=== PATIENT | female | born 1955 | race Caucasian/White ===

== ENCOUNTER 2016-04-01 05:30 | Day surgery (SDC) | payer OTHER ==
[2016-04-01] VITALS (12 sets, daily range): BP systolic 125–157; BP diastolic 54–92; PULSE 97–107; RESP 11–20; O2SAT 93–98
[~2016-04-01] VITALS: Ht 167.6 cm; Wt 105.2 kg
[~2016-04-01 05:30] MED LIST: AMLO5TAB2 PO; CALC-3 PO; LACT1CAP65 PO; MULT-1073 PO; [UNRECOGNIZED DRUG - CODE] MM
[2016-04-01] MEDS ORDERED: Dexamethasone 4 mg/mL Inj ONE (05:31)
[2016-04-01] MEDS ORDERED: Propofol 10,000 mCg/mL 20 mL Inj ONE (05:31)
[2016-04-01] MEDS ORDERED: Rocuronium 10 mg/mL 5 mL Inj ONE (05:31)
[2016-04-01] MEDS ORDERED: Ondansetron 2 mg/mL 2 mL Inj ONE (05:31)
[2016-04-01] MEDS ORDERED: fentaNYL-PF 50 mCg/mL 2 mL Inj ONE (05:31)
[2016-04-01] MEDS ORDERED: MetoCLOpramide 5 mg/mL 2 mL Inj ONE (05:31)
[2016-04-01] MEDS: Lactated Ringer's 1,000 ML IV SCH ×3 (06:14→15:19)
[2016-04-01] MEDS ORDERED: CeFAZolin Inj 2 gm / 50mL D5W IV ONE (06:15)
[2016-04-01] MEDS ORDERED: Bupivacaine-MPF 0.25% 30 mL Inj INFILTRATE ONE (07:41)
[2016-04-01] MEDS: CeFAZolin 2 Gm/50 mL D5W IV Premix IV ONE ×2 (07:43→08:22)
--- NOTE | 2016-04-01 08:42 | PCM.HPANE ---
Patient Data Date of Service: Apr 01, 2016 (0710) Surgeon Admitting Provider: Attending Provider:Alice Vinson MD Primary Care Physician:Anya Londono MD Other Provider:Braydon Mcdonald Anesthesia Reason for Visit Right Lung Adenocarcinoma Ht/WT & BMI Height (Feet): 5 Height (Inches): 6 Weight (Kilograms): 100.2 Body Mass Index 35.00 Allergies Coded Allergies: lisinopril (Verified Adverse Reaction, Intermediate, cough, 04/01/16) losartan (Verified Adverse Reaction, Unknown, 04/01/16) Past Anesthesia History Anesthesia History: Denies:: Abnormal Airway, Anesthesia Reactions, Difficult Intubation, Fam Anesthesia Reaction Diabetes History Hx Diabetes?: No MRSA MRSA: No Medications Hypertension Medication: Yes Home Meds Incl Beta Moise: No Reported Medications Phenol (Chloraseptic)20 Ml Spray20 Ml MM prn 03/23/16 Lactobacillus Acidophilus (Probiotic)1 Each Capsule1 Each PO DAILY 03/23/16 Calcium Carbonate/Vitamin D3 (Calcium 500+D Tablet Chew)1 Each Tab.chew1 Each PO DAILY 03/23/16 Multivits-Min/FA/Lycopene/Lut (Centrum Silver Tablet)1 Each Tablet1 Each PO DAILY 03/23/16 Amlodipine 5 Mg [id number] Mg PO BID Ref 0 03/08/16 History History of ENT Problems?: Yes HEENT History: Denies:: Abnormal Airway Cataracts (forming not yet surgically treated) Difficult Intubation Dysphagia Glaucoma Hearing Problem Sinus Problem TMJ Hx of Heart Problems?: Yes Cardiovascular History: Positive for:: Hypertension Denies:: AICD Abdominal Aortic Aneurism Coronary Artery Disease Edema Heart Murmur Irregular Heartbeat Pacemaker Peripheral Vascular Rheumatic Fever Thrombophlebitis Valvular Heart Disease Hx of Respiratory Problem?: Yes Respiratory History: Positive for:: Dyspnea Pneumonia (remote hx of) Denies:: Asthma COPD Chest Surgery Emphysema Hemoptysis Oxygen Administration Pulmonary Embolism Tuberculosis Use of C-PAP Machine Use of Inhalers / NEBS Other Resp Pertinent History: lung adenocarcinoma current admission problem Hx Neurologic Problems?: No Neurological History: Denies:: Alzheimer's Disease CVA Dementia Dizziness Headaches Multiple Sclerosis Parkinson's Disease Seizures TIA Hx of GI Problems?: Yes Gastrointestinal History: Positive for:: Gastroesphageal Reflux (on rare occasions, not on rx ) Denies:: Cirrhosis Diverticulitis Gall Bladder Disease Gastrointestinal Bleeding Heartburn Hepatitis Hiatal Hernia Liver Disease Rectal Bleeding Hx of Problems?: Yes Genitourinary History: Denies:: Kidney Stones Urinary Tract Infection Female Hx: Denies:: Currently (hysterectomy) Endometriosis Pelvic Inflammatory Problems with Breasts? Skin History: Denies:: History Skin Disorders? Pressure Ulcers Hx Musculoskeletal Problems?: No Musculoskeletal History: Denies:: Back Injury Fibromyalgia Joint Replacement Musculoskeletal Trauma (one knee gives her issues "when it rains") Myasthenia Gravis Osteoarthritis Hx of Psycho/Social Problems?: No Psycho Social History: Denies:: Anxiety Bipolar Disorder Hx Depression Suicide Attempt Hx Surgeries?: Yes (tonsil, hanane) Hx Any Other Health Problems?: Yes Other History: Positive for:: Cancer (lung cancer current admission problem) Hospitalization Denies:: Endocrine Disease Thyroid Disease History Blood Transfusions: Positive for:: Accept Blood Products? Denies:: Blood Transfuse Reaction Blood Transfusions Hx Diabetes: No Hx Alcohol Use: Yes (rare to none)Alcoholic Drinks Per Day: every few months Hx Substance Use: No Smoking Status: Never Smoker Have You Smoked inLast 12 mo: No Stop/Bang S-Snoring: Do You Snore Loudly: No T-Tired: feel tired, fatigued: Yes O-Obsered: Observed not breath: No P-Blood Pressure: treated: Yes B- Body Mass Index > 35 kg/m2: Yes A- Age over 50: Yes N- Neck Large Circumference: No G- Gender Male: No QIAN Total Score: 4 Risk Assessment Category Category 1A: Patient has history of documented sleep apnea, and HAS NOT received any narcotic, sedative or anesthesia administration during this stay. Category 1B: Patient has history of documented sleep apnea, and HAS received any narcotic , sedative or anesthesia administration during this stay Category 2: Patient has SUSPECTED Obstructive Sleep Apnea, and HAS received any narcotic , sedative or anesthesia administration during this stay. Category 3: Patient has SUSPECTED Obstructive Sleep Apnea and HAS NOT received narcotic, sedative or anesthesia administration during this stay. Category 4: Outpatient in Procedural Areas with known sleep apnea or who screen positive for High Risk via the STOP/BANG questionnaire. Exam Exam Vital Signs Vital Signs Date Time Temp Pulse Resp B/P Pulse Ox O2 Delivery O2 Flow Rate FiO2 04/01/16 05:56 36.9 105 16 157/88 96 Room Air General Appearance: Alert, Oriented X3, Cooperative, No Acute Distress HEENT/AIRWAY: MP 2 Lungs: Clear to Auscultation Heart: Exam Unremarkable Meds/Labs/Diagnostics Admission Meds Current Medications Lactated Ringer's 1,000 ml @ 120 mls/hr Q8H20M IV Last administered on 07:00; Start 04/01/16 at 05:00; Stop 04/01/16 at 13:19 Cefazolin Sodium/ Dextrose/Premix (Ancef Inj/IV Premix) 50 ml @ 100 mls/hr PREOP ONCE IV Last administered on 04/01/16 08:22; Start 04/01/16 at 06:00; Stop 04/01/16 at 06:29; Status DC Bupivacaine HCl (Sensorcaine-MPF 0.25% Inj) 30 ml STK-MED ONCE INFILTRATE Last administered on 04/01/16 07:41; Start 04/01/16 at 07:41; Stop 04/01/16 at 07:51 ; Status DC Plan Impression Patient chart reviewed, patient interviewed and anesthestic plan with risks, benefits, and alternatives discussed, and informed consent obtained. NPO Status: [id number] 04/01/16 ASA Physical Status: ASA2 Mod Systemic Disease Anesthetic Support Modalities: Arterial Line Anesthetic Plan: GA Bene/Risks/Altern/Consents: Yes HP Complete Prior to Induction: Yes Yakov Vilchis MD Apr 01, 2016 08:42
[2016-04-01] MEDS ORDERED: Lactated Ringer's 500 ML IV PRN (08:44)
[2016-04-01] MEDS ORDERED: Lactated Ringer's 1,000 ML IV SCH (08:44)
[2016-04-01] MEDS ORDERED: MetoCLOpramide 5 mg/mL 2 mL Inj IVPUSH PRN ×2 (08:45→12:55)
[2016-04-01] MEDS ORDERED: Dexamethasone 4 mg/mL Inj IVPUSH PRN (08:45)
[2016-04-01] MEDS ORDERED: Phenylephrine 10,000 mCg/mL Inj IVPUSH PRN (08:45)
[2016-04-01] MEDS ORDERED: EPHEDrine Sulfate 50 mg/mL Inj IVPUSH PRN (08:45)
[2016-04-01] MEDS ORDERED: Ondansetron 2 mg/mL 2 mL Inj IVPUSH PRN ×2 (08:45→12:55)
[2016-04-01] MEDS ORDERED: Lactated Ringer's 1,000 ML IV ONE ×2 (09:52→12:19)
[2016-04-01] MEDS ORDERED: Bupivacaine-MPF 0.5% 30 mL Inj INFILTRATE ONE (12:17)
[2016-04-01] MEDS: fentaNYL-PF 50 mCg/mL 2 mL Inj IVPUSH PRN ×2 (12:46→12:55)
[2016-04-01] MEDS: HYDROmorphone 1 mg/mL Inj IVPUSH PRN ×2 (12:46→12:55)
--- NOTE | 2016-04-01 12:49 | PCM.SURGPO ---
Immediate Operative Note Date of Surgery: Apr 01, 2016 Pre Operative Diagnosis Right lower lobe adenocarcinoma Post Operative Diagnosis Right lower lobe adenocarcinoma, Right Pleural plaques Procedure Right Thoracoscopy with biopsies, Cervical Mediastinoscopy with biopsies Surgeon and Computer Typesetter Keyliner Surgeon: Alice Vinson MD Assistants: Jose Angel Cunningham MD, Sydney Weeks, PAC Findings Few pleural plaques, biopsied, Station 7, 4R, 10R biopsied Complications There were no periprocedural complications identified. Surgical Specimen Removed: Yes Specimen sent to Pathology: Yes Surgical Specimen description: 1. R Pleural plaque 1 2. R Pleural plaque 2 3. 7 - Lymph node 4. 4R Lymph node 1 5. 10R Lymph node 6. 4R Lymph node 2 Anesthetic Administered: GA Grafts, Implants: None Output, Estimated Blood Loss: 5 Blood Admin during surgery: No Attending Statement Plant Packer listed was necessary for the successful completion of the case Alice Vinson MD Apr 01, 2016 12:49
[2016-04-01] MEDS ORDERED: HYDROmorphone 1 mg/mL Inj IVPUSH PRN (12:55)
[2016-04-01 13:31] LABS: BASOPHILS % (AUTO) 0.1 % (0-3); EOSINOPHILS % (AUTO) 0 % (0-5); Mean Corpuscular Hemoglobin 29.1 pg (27.0-35.0); Mean Corpuscular Volume 86.8 fL (81-100); NEUTROPHILS % (AUTO) 90.3 % (40-74); Platelet Count 225 bil/L (150-400)
--- NOTE | 2016-04-01 13:33 | DRSVH ---
PROCEDURE: X-RAY CHEST ONE VIEW, PORTABLE ([id number]) INDICATIONS: s/p R thoracoscopy, Mediastinoscopy TECHNIQUE: One view of the chest was acquired. COMPARISON: [facility], CT, CT BX LUNG MEDIASTINUM, 03/09/2016, 8:53. [facility], CR, XR CHEST 1VW (PORTABLE), 03/09/2016, 11:02. FINDINGS: Surgical changes and devices: Right chest tube is present Lungs and pleura: No pleural effusions or pneumothorax. Ill-defined consolidative opacity in the rig ht lung base as before. Lung volumes are low Mediastinum: Mediastinal contours appear normal. Heart size is normal. Bones and chest wall: No suspicious bony lesions. Overlying soft tissues appear unremarkable. IMPRESSION: Ill-defined consolidative masslike opacity within the right lung base as before. Status post right chest tube placement. No residual pneumothorax identified. Low lung volumes and scattered bibasilar atelectasis. No new consolidation Dictated by: Hair Santiago M.D. on 04/01/2016 at 13:24 Approved by: Hair Santiago M.D. on 04/01/2016 at 13:31
[2016-04-01 13:38] LABS: APPEARANCE,URINE HAZY (CLEAR,HAZY); COLOR,URINE STRAW (YELLOW); OCCULT BLOOD,URINE TRACE (NEGATIVE); PH,URINE 7.5 (5.0-8.0); UROBILINOGEN,URINE NORMAL (NORMAL)
--- NOTE | 2016-04-01 13:48 | PCM.ANEP2 ---
Post Anesthesia Evaluation ASA/CMS Post Anesthesia VS in Patient's Normal Range?: Yes Resp Stable; Airway Patent?: Yes CV Function & Hydration Stable: Yes Mental Status Recovered?: Yes Pain control Satisfactory?: Yes N/V Control Satisfactory?: Yes Yakov Vilchis MD Apr 01, 2016 13:48
--- NOTE | 2016-04-01 13:48 | PCM.ANEP1 ---
Post Anesthesia Phase 1 PACU Phase 1 Assessment Date of Service: Apr 01, 2016 Vital Signs Vital Signs Date Time Temp Pulse Resp B/P Pulse Ox O2 Delivery O2 Flow Rate FiO2 04/01/16 13:30 106 14 144/80 93 Nasal Cannula 4 04/01/16 13:15 106 17 136/77 96 Nasal Cannula 4 04/01/16 13:00 36.3 100 14 125/54 97 Nasal Cannula 4 04/01/16 12:55 104 14 147/82 96 Simple Mask 8 04/01/16 12:50 99 13 150/86 95 Simple Mask 8 04/01/16 12:45 101 15 156/78 95 Simple Mask 8 04/01/16 12:36 36.2 102 18 150/92 97 Simple Mask 8 04/01/16 05:56 36.9 105 16 157/88 96 Room Air Anesthetic Administered: GA Level of Alertness: Sleepy, easy to arouse CONNELL's with Equal Strength: Yes Pain: Yes Nausea or Vomiting: No Oxygen Delivery: Simple Mask Lungs: Clear to Auscultation Dermatome Level: Full Sensation Yakov Vilchis MD Apr 01, 2016 13:48
--- NOTE | 2016-04-01 15:02 | NUR ---
ADMIT TO OSC Patient arrived to rm 1003 on OR gurney, was able to scoot/pivot over to hospital bed with minimal assistance. AOx4, able to CONNELL. On 2 LPM O2 via NC, O2 sats @ 94%, denies any SOB. States minimal pain with deep inspiration. All surgical drsgs are C/D/I. R chest tube with sanguineous drainage, connected to wall suction. Patient states pain is 1/10 which is tolerable for her. Gave ice chips and ice water. VSS. Continue to monitor.
--- NOTE | 2016-04-01 15:06 | OP ---
[address] [address] OPERATIVE REPORT PATIENT: THALIA COPPOLA : 1955 MR#: [id number] ADMIT: 04/01/2016 JOB ID: [id number] DATE OF SURGERY: 04/01/2016 PREOPERATIVE DIAGNOSIS(ES): Right lower lobe lung adenocarcinoma. POSTOPERATIVE DIAGNOSIS(ES): Right lower lobe lung adenocarcinoma, with right pleural plaques. PROCEDURE PERFORMED: Right video-assisted thoracoscopy with pleural biopsies and cervical mediastinoscopy with biopsy of mediastinal lymph nodes. SURGEON: Dr. Alice Vinson MICROWAVE RADIO TECHNICIAN: 1. Jose Angel Cunningham MD 2. Sydney Weeks PA-C COMPLICATIONS: None. CONDITION OF THE PATIENT: Stable. ESTIMATED BLOOD LOSS: 5 mL. INDICATIONS: The patient is a 60-year-old lady who has had a chronic cough. She noticed it since the spring. She was seen by Dr. Rapp on December 2015 and had a chest x-ray, which showed a right lower lobe infiltrate. She was treated with antibiotics without relief and had a followup x-ray in two weeks which showed the infiltrate to be persistent, which led to a CT chest with contrast, and ultimately meeting me on February 25, 2016 for surgical consultation. Interestingly, this lesion was seen previously on a CT KUB performed in April 2015, for followup of some cystic kidney lesions. She was also hospitalized with respiratory illness and bacteremia in February 2007, at which time there was a small cavitary lesion in the right lower lobe in the same location. After she saw, me she had a PET-CT and a CT-guided biopsy. The PET-CT showed no obvious distant disease other than activity in the right lower lobe lung mass. There is no evidence of mediastinal adenopathy or uptake or distant disease. CT-guided biopsy of the lung mass was consistent with moderately differentiated adenocarcinoma. Brain MRI showed no evidence of metastatic disease. Her pulmonary function tests and stress echocardiogram showed good functional status. After discussing the risks, benefits, and alternatives, and discussion in the multidisciplinary tumor conference, she is here today for diagnostic thoracoscopy for looking for any evidence of any pleural metastases and a cervical mediastinoscopy for staging. PROCEDURE DETAILS: She was placed in supine position and underwent smooth induction of general anesthesia with a double-lumen endotracheal tube. Had a Ghosh catheter placed and also had a right radial arterial line placed. She was then placed in a left lateral decubitus position with all pressure points adequately padded. The right chest was prepped and draped in the usual sterile fashion. Surgical time-out was undertaken using safety checklist, and all were in agreement. After asking the anesthesia team to deflate the right lung, I made an incision in the midaxillary line, close to the 7th intercostal space, and divided the skin and subcutaneous tissue sharply and split the intercostal muscles and then entered the pleura safely bluntly and then placed a 10 mm Thoracoport there was no obvious pleural effusion seen and there was no obvious evidence of a intrapleural metastasis, but upon closer examination we did note some wide plaques measuring a centimeter or two posteriorly. The actual tumor itself appeared to be confined to the right lower lobe, with the right middle lobe and upper lobe being normal. The tumor did not appear to be adherent to either the diaphragm or the chest wall. We then placed another 10 mm port anteriorly around the same intercostal space under direct vision and biopsied these pleural plaques and sent them for frozen section examination. These were biopsied with sharply with scissors and biopsy forceps. They were thought to be consistent with atypical mesothelial cells, but malignancy could not be obviously ruled out, but thought to be of low likelihood. I then took some additional biopsies of the basilar another pleural nodule with the biopsy forceps and, after making sure we had good hemostasis, placed a #20 straight chest tube through the posterior port and inflated the lung under direct vision. We withdrew both the ports after doing intercostal blocks around both incisions. The chest tube was secured in place and the anterior thoracoscopic incision was closed with layers of 3-0 Vicryl followed by 4-0 Monocryl. Steri-Strips and a sterile dressing were applied. The chest tube was connected to 20 cm water suction. We repositioned the patient in a supine position and prepped and draped the neck and chest for mediastinoscopy. I made a 3 cm incision a fingerbreadth above the suprasternal notch, dividing the skin and subcutaneous tissue sharply. I the strap muscles in the midline and got down to the trachea inferior to the thyroid. I then developed this plane bluntly in the pretracheal plane posterior to the innominate artery into the mediastinum. After that we advanced the video mediastinoscope, dissecting a space bluntly all the way to the casie. I was able to readily identify subcarinal lymph nodes in station seven, after dissecting them free bluntly and making sure after aspirating with a needle to get biopsy of this with a biopsy forceps. I achieved hemostasis with pressure and electrocautery. Then we directed our attention to the lower peritracheal nodes on the right, looking for basically station 4R. We spent quite a bit of time looking for obvious lymph nodes but none could be seen. We looked bilaterally and in the paratracheal regions and took a bunch of lymph node containing tissue from the lower right peritracheal region but initially no obvious nodes were seen. But as I proceeded with the dissection I did note some actual right hilar, that is 10R, lymph nodes which I then dissected free. I then sampled and sent for pathology. After that I actually also found an original 4R node which was definitively a lymph node and sent that for pathology. At that time I did not feel there was any utility in looking harder for more lymph nodes as we had gotten all stations which were highest yield given her right lower lobe malignancy. After ensuring hemostasis, I also put some FloSeal in the mediastinum to make sure I got good hemostasis. I then removed the mediastinoscope and closed the neck incision in layers of 3-0 Vicryl. We reapproximated the strap muscles in the platysma and 4-0 Monocryl to close the skin. Sterile dressing were applied. The patient was recovered from anesthesia and was taken to the recovery room in a stable condition. At that time there was no evidence of air leak and she was doing well hemodynamically.
[2016-04-01] MEDS ORDERED: OXYC5TAB72 PO (16:50)
[2016-04-01] MEDS ORDERED: SENN-133 PO (16:50)
--- NOTE | 2016-04-01 16:50 | NUR ---
CHEST TUBE/DE LEON Chest tube d/c'd by Dr. Vinson, gauze pressure dressing applied. De Leon catheter d/c'd per MD order. Peripheral IV saline locked. Encouraged patient to use I.S. 10x/hr. Place on RA with O2 sats @ 94%. Care continues.
--- NOTE | 2016-04-01 16:53 | PCM.DISURG ---
Surgical Discharge Instruction Date of Service Apr 02, 2016 Dates of Hospitalization Date of Hospital Admission Providers Primary Care Physician: Anya Londono MD Attending Physician: Alice Vinson MD Discharge Diagnosis Post Operative diagnosis Right lower lobe adenocarcinoma, Right Pleural plaques s/p R Thoracoscopy with biopsies, Cervical Mediastinoscopy on 04/01/2016 Diet Discharge Diet: No restrictions Activity Discharge Activity-General: Be up and about Dressing and Incisional Care Dressing Care: Other (Remove Chest tube site dressing after 48 hrs) Hygiene: May shower Follow Up Plan Follow-up Provider (F9): Alice Vinson MD Follow-up appointment: Weeks (1) Call your provider for: Fever, Chills, Shortness of breath, Nausea, Vomiting, Wound redness, Discharge @ incision, pus discharge Alice Vinson MD Apr 01, 2016 16:53
--- NOTE | 2016-04-01 18:01 | DRSVH ---
PROCEDURE: X-RAY CHEST, TWO VIEWS ([id number]) INDICATIONS: Follow up Right Chest Tube Removal TECHNIQUE: 2 views of the chest were acquired. COMPARISON: [facility], CR, XR CHEST 1VW (PORTABLE), 04/01/2016, 12:45. FINDINGS: Surgical changes and devices: Interval removal of right chest tube. Lungs and pleura: Trace right pneumothorax after removal of right chest tube. Mediastinum: Mediastinal contours are normal. Heart size is normal. Bones and chest wall: No suspicious bony abnormalities. Soft tissues appear unremarkable. IMPRESSION: Right pneumothorax after removal of chest tube. Dictated by: Montse Mane M.D. on 04/01/2016 at 17:56 Approved by: Montse Mane M.D. on 04/01/2016 at 17:59
[2016-04-02 05:03] VITALS: BP 152/84; PULSE 104; RESP 20; O2SAT 94
[2016-04-02 05:38] LABS: BASOPHILS % (AUTO) 0.1 % (0-3); EOSINOPHILS % (AUTO) 0 % (0-5); MONOCYTES % (AUTO) 8.6 % (4-12); Mean Corpuscular Hemoglobin 29.4 pg (27.0-35.0); Mean Corpuscular Volume 87.4 fL (81-100); NEUTROPHILS % (AUTO) 79.5 % (40-74); Platelet Count 213 bil/L (150-400)
--- NOTE | 2016-04-02 06:26 | NUR ---
ACTIVITY: Pt. has been resting in bed most of the night. Has been up to the bathroom independently for voiding and passing flatus. No BM this shift. Drinking lots of fluids, voiding a lot pale urine. Using I.S. independently. Declined all pain medication. All dressing CDI. Up ambulating on the hallway independently this AM. A & O, vss.
[2016-04-02 09:31] VITALS: BP 126/77; PULSE 96; RESP 18; O2SAT 96
--- NOTE | 2016-04-02 12:41 | NUR ---
Discharge Pt left with family in stable condition with all belongings at 1230, IV d/c'd, outer dressing removed from neck, Chest tube dressing CDI, instructions for pt to remove dressing after 48 hours. prescription given, instructions for scheduling follow up appointment given.
--- NOTE | 2016-04-02 15:22 | PROG NOTE ---
[address] [address] PROGRESS NOTE PATIENT: THALIA COPPOLA : 1955 MR#: [id number] ADMIT: 04/01/2016 JOB ID: [id number] DATE: 04/02/2016 SUBJECTIVE: The patient is seen in anticipation of discharge today. She is stable, dressings intact. She will go home today.
--- NOTE | 2016-04-04 11:32 | PCM.DC.SUR ---
Discharge Summary Date of Service: Date of Hospital Admission: 04/01/16 Date of Operation(s): 04/01/16 Date of Discharge: Apr 02, 2016 at 12:30 Diagnosis at Time of Discharge Right lower lobe lung adenocarcinoma, with right pleural plaques. Problems: Operation Right video-assisted thoracoscopy with pleural biopsies and cervical mediastinoscopy with biopsy of mediastinal lymph nodes. Brief History and Physical: The patient is a 60-year-old lady who has had a chronic cough. She noticed it since the spring. She was seen by Dr. Rapp on December 2015 and had a chest x-ray, which showed a right lower lobe infiltrate. She was treated with antibiotics without relief and had a followup x-ray in two weeks which showed the infiltrate to be persistent, which led to a CT chest with contrast, and ultimately meeting me on February 25, 2016 for surgical consultation. Interestingly, this lesion was seen previously on a CT KUB performed in April 2015, for followup of some cystic kidney lesions. She was also hospitalized with respiratory illness and bacteremia in February 2007, at which time there was a small cavitary lesion in the right lower lobe in the same location. After she saw, me she had a PET-CT and a CT-guided biopsy. The PET-CT showed no obvious distant disease other than activity in the right lower lobe lung mass. There is no evidence of mediastinal adenopathy or uptake or distant disease. CT-guided biopsy of the lung mass was consistent with moderately differentiated adenocarcinoma. Brain MRI showed no evidence of metastatic disease. Her pulmonary function tests and stress echocardiogram showed good functional status. After discussing the risks, benefits, and alternatives, and discussion in the multidisciplinary tumor conference, she is here today for diagnostic thoracoscopy for looking for any evidence of any pleural metastases and a cervical mediastinoscopy for staging. Consultants: General Surgery: Dr. Alice Vinson [facility] Course: POD # [address] Leonard's Progress note The patient is seen in anticipation of discharge today. She is stable, dressings intact. She will go home today. Pathology: Pending Disposition: Home Follow-up Plan: Dr. Vinson 1 week Amlodipine (Amlodipine) 5 Mg Tablet 10 MG PO BID (Reported) Calcium Carbonate/Vitamin D3 (Calcium 500+D Tablet Chew) 1 Each Tab.chew 1 EACH PO DAILY (Reported) Lactobacillus Acidophilus (Probiotic) 1 Each Capsule 1 EACH PO DAILY (Reported) Multivits-Min/FA/Lycopene/Lut (Centrum Silver Tablet) 1 Each Tablet 1 EACH PO DAILY (Reported) Phenol (Chloraseptic) 20 Ml [place] 20 ML MM prn (Reported) Sennosides (Senna) 8.6 Mg Tablet 17.2 MG PO DAILY oxyCODONE (oxyCODONE) 5 Mg Tablet 5-10 MG PO Q4H PRN PRN For Severe Pain Sydney Weeks PA-C Apr 04, 2016 11:32
[2016-06-06] MEDS ORDERED: ONDA8TAB10 PO (09:41)
[2016-06-06] MEDS ORDERED: OLAN5TAB PO (09:41)
[2016-06-06] MEDS ORDERED: LORA0.5T PO (09:41)
[2016-06-06] MEDS ORDERED: FOLI0.4T2 PO (09:41)
[2016-06-13] MEDS ORDERED: METO25TA6 PO (08:34)
== END 2016-04-02 12:30 | disposition home or self-care (01) ==
LOC: SAS 05:30 → OSC 14:06 → SAS 04-02 12:30
PROVIDERS: ATTEND Student in an Organized Health Care Education/Training Program
DX: C34.91 Malignant neoplasm of unspecified part of right bronchus or lung (principal); J92.9 Pleural plaque without asbestos; I10 Essential (primary) hypertension; E78.5 Hyperlipidemia, unspecified; G47.30 Sleep apnea, unspecified; K21.9 Gastro-esophageal reflux disease without esophagitis; D69.6 Thrombocytopenia, unspecified; D17.71 Benign lipomatous neoplasm of kidney; E66.9 Obesity, unspecified; Z68.36 Body mass index [BMI] 36.0-36.9, adult
CPT/HCPCS: 32609; 36415; 39401; 71010; 71020; 81000; 85025; J0690; J1100; J1170; J2250; J2405; J2765; J3010; J7120

== ENCOUNTER 2016-04-22 05:39 | Inpatient (IN) | payer OTHER ==
[~2016-04-22] VITALS: Ht 167.6 cm; Wt 102.0 kg
[2016-04-22] VITALS (12 sets, daily range): BP systolic 104–173; BP diastolic 60–98; PULSE 83–107; RESP 12–33; O2SAT 93–99
[2016-04-22] MEDS: Lactated Ringer's 1,000 ML IV SCH ×6 (05:00→13:20)
[~2016-04-22 05:39] MED LIST changes: +OXYC5TAB72 PO; +SENN-133 PO
[2016-04-22] MEDS ORDERED: CeFAZolin Inj 2 gm / 50mL D5W IV ONE (05:56)
[2016-04-22] MEDS ORDERED: CeFAZolin 2 Gm/50 mL D5W IV Premix IV ONE (06:00)
[2016-04-22] MEDS ORDERED: ACET325T51 PO (06:44)
--- NOTE | 2016-04-22 07:12 | PCM.HPANE ---
Patient Data Surgeon Admitting Provider: Attending Provider:Alice Vinson MD Primary Care Physician:Anya Londono MD Other Provider:[facility] Reason for Visit Adenocarcinoma Of Right Lung Ht/WT & BMI Height (Feet): 5 Height (Inches): 6.00 Weight (Kilograms): 98.5 Body Mass Index 34.00 Allergies Coded Allergies: lisinopril (Verified Adverse Reaction, Intermediate, cough, 04/20/16) losartan (Verified Adverse Reaction, Unknown, UNKNOWN, 04/20/16) Past Anesthesia History Anesthesia History: Denies:: Abnormal Airway, Anesthesia Reactions, Difficult Intubation, Fam Anesthesia Reaction, Malignant Hyperthermia Diabetes History Hx Diabetes?: No MRSA MRSA: No Medications Hypertension Medication: Yes (AMLODIPINE) Home Meds Incl Beta Moise: No Active Scripts oxyCODONE 5 Mg Tablet5-10 Mg PO Q4H PRN For Severe Pain #30 TABLET Prov:Alice Vinson MD 04/01/16 Sennosides (Senna)8.6 Mg Ciwlam20.2 Mg PO DAILY #30 TABLET Prov:Alice Vinson MD 04/01/16 Reported Medications Acetaminophen 325 Mg [id number] Mg PO Q4H PRN For Fever Ref 0 04/22/16 Phenol (Chloraseptic)20 Ml Spray20 Ml MM prn 03/23/16 Lactobacillus Acidophilus (Probiotic)1 Each Capsule1 Each PO DAILY 03/23/16 Calcium Carbonate/Vitamin D3 (Calcium 500+D Tablet Chew)1 Each Tab.chew1 Each PO DAILY 03/23/16 Multivits-Min/FA/Lycopene/Lut (Centrum Silver Tablet)1 Each Tablet1 Each PO DAILY 03/23/16 Amlodipine 5 Mg [id number] Mg PO BID Ref 0 03/08/16 History History of ENT Problems?: Yes HEENT History: Denies:: Abnormal Airway Cataracts (forming not yet surgically treated) Difficult Intubation Dysphagia Hearing Problem Sinus Problem TMJ Other HEENT Pertinent History: S/P TONSILLECTOMY Hx of Heart Problems?: Yes Cardiovascular History: Positive for:: Hypertension (HYPERLIPIDEMIA) Denies:: AICD Abdominal Aortic Aneurism Edema Heart Murmur (MPS 03/2016) Irregular Heartbeat Pacemaker Rheumatic Fever Thrombophlebitis Valvular Heart Disease Other Cardiac History: HX THROMBOCYTOPENIA 2010 Hx of Respiratory Problem?: Yes Respiratory History: Positive for:: Chest Surgery (S/P RT THORACOSCOPY/ MEDIASTINOSCOPY W/ BX) Cough (CHRONIC) Dyspnea (SARAH) Pneumonia (remote hx of) Use of C-PAP Machine (QIAN+) Denies:: Asthma COPD Emphysema Hemoptysis Oxygen Administration Pulmonary Embolism Tuberculosis Other Resp Pertinent History: ADENOCARCINOMA RT LUNG/IV ACESS=CURRENT PROBLEM Other History/Comment Persistent dry cough, other cutler ROS negative Hx Neurologic Problems?: Yes Neurological History: Denies:: Alzheimer's Disease CVA Dementia Dizziness Headaches Multiple Sclerosis Parkinson's Disease Seizures Hx of GI Problems?: Yes Gastrointestinal History: Positive for:: Gastroesphageal Reflux (INTERMITTANT) Denies:: Cirrhosis Diverticulitis Gastrointestinal Bleeding Heartburn Hepatitis Hiatal Hernia Rectal Bleeding Other History/Comment Occasional Reflux rx'd with OTCs Hx of Problems?: Yes Genitourinary History: Denies:: Kidney Stones Urinary Tract Infection Other Pertinent History: LT KIDNEY CYST (ANGIOMYOLIPOMA) Female Hx: Denies:: Currently Endometriosis Pelvic Inflammatory Problems with Breasts? Skin History: Denies:: History Skin Disorders? Pressure Ulcers Hx Musculoskeletal Problems?: No Musculoskeletal History: Denies:: Back Injury Joint Replacement Musculoskeletal Trauma (INTERMITTANT KNEE PAIN) Hx of Psycho/Social Problems?: No Psycho Social History: Denies:: Anxiety Bipolar Disorder Hx Depression Suicide Attempt Hx Surgeries?: Yes (tonsil, hanane,RT THORACOSCOPY/MEDIASTINOSCOPY W/ BX'S) Hx Any Other Health Problems?: Yes Other History: Positive for:: Cancer (ADENOCARCINOMA RT LUNG) Hospitalization Denies:: Endocrine Disease Thyroid Disease History Blood Transfusions: Denies:: Blood Transfuse Reaction Blood Transfusions Hx Diabetes: No Hx Alcohol Use: Yes (rare to none)Hx Substance Use: No Smoking Status: Never Smoker Have You Smoked inLast 12 mo: No Stop/Bang Treated for Sleep Apnea?: No Do You Have a CPAP Machine?: No S-Snoring: Do You Snore Loudly: No T-Tired: feel tired, fatigued: Yes O-Obsered: Observed not breath: No P-Blood Pressure: treated: Yes B- Body Mass Index > 35 kg/m2: Yes A- Age over 50: Yes N- Neck Large Circumference: Yes G- Gender Male: No QIAN Total Score: 5 Risk Assessment Category Category 1A: Patient has history of documented sleep apnea, and HAS NOT received any narcotic, sedative or anesthesia administration during this stay. Category 1B: Patient has history of documented sleep apnea, and HAS received any narcotic , sedative or anesthesia administration during this stay Category 2: Patient has SUSPECTED Obstructive Sleep Apnea, and HAS received any narcotic , sedative or anesthesia administration during this stay. Category 3: Patient has SUSPECTED Obstructive Sleep Apnea and HAS NOT received narcotic, sedative or anesthesia administration during this stay. Category 4: Outpatient in Procedural Areas with known sleep apnea or who screen positive for High Risk via the STOP/BANG questionnaire. Exam Exam Vital Signs Vital Signs Date Time Temp Pulse Resp B/P Pulse Ox O2 Delivery O2 Flow Rate FiO2 04/22/16 06:35 36.3 107 18 173/91 94 Room Air General Appearance: Alert, Oriented X3, Cooperative HEENT/AIRWAY: MP 2 Lungs: Clear to Auscultation Heart: Exam Unremarkable Meds/Labs/Diagnostics Admission Meds Current Medications Lactated Ringer's (Lr) 1,000 ml @ 120 mls/hr Q8H20M IV Last administered on t 05:54; Start 04/22/16 at 05:00; Stop 04/22/16 at 13:19 Plan Impression Patient chart reviewed, patient interviewed and anesthestic plan with risks, benefits, and alternatives discussed, and informed consent obtained. NPO Status: MN ASA Physical Status: ASA3 Severe Disease Anesthetic Support Modalities: Arterial Line Anesthetic Plan: Epidural Bene/Risks/Altern/Consents: Yes HP Complete Prior to Induction: Yes Gopal Andujar MD Apr 22, 2016 07:12
[2016-04-22] MEDS ORDERED: Succinylcholine Chloride 20 mg/mL 5 mL Inj ONE (07:20)
[2016-04-22] MEDS ORDERED: Propofol 10,000 mCg/mL 20 mL Inj ONE (07:20)
[2016-04-22] MEDS ORDERED: fentaNYL-PF 50 mCg/mL 2 mL Inj ONE (07:20)
[2016-04-22] MEDS ORDERED: Rocuronium 10 mg/mL 5 mL Inj ONE (07:20)
[2016-04-22] MEDS ORDERED: Ondansetron 2 mg/mL 2 mL Inj ONE (07:20)
[2016-04-22] MEDS ORDERED: Bupivacaine-MPF 0.5% 30 mL Inj INFILTRATE ONE (07:29)
[2016-04-22 09:36] LABS: APPEARANCE,URINE SLIGHTLY CLOUDY (CLEAR,HAZY); COLOR,URINE STRAW (YELLOW); OCCULT BLOOD,URINE NEGATIVE (NEGATIVE); PH,URINE 7.5 (5.0-8.0); UROBILINOGEN,URINE NORMAL (NORMAL)
[2016-04-22] MEDS ORDERED: Lactated Ringer's 500 ML IV PRN (10:07)
[2016-04-22] MEDS ORDERED: Ondansetron 2 mg/mL 2 mL Inj IVPUSH PRN ×3 (10:10→15:50)
[2016-04-22] MEDS ORDERED: EPHEDrine Sulfate 50 mg/mL Inj IV PRN (10:10)
[2016-04-22] MEDS ORDERED: fentaNYL 2 mCg/mL-Bupiv 0.125% 250 ML in IV Premix 1 EACH EPIDURAL SCH (10:10)
[2016-04-22] MEDS ORDERED: fentaNYL-PF 50 mCg/mL 2 mL Inj IVPUSH PRN (10:10)
[2016-04-22] MEDS ORDERED: Atropine 1 mg/mL Inj IVPUSH PRN (10:10)
[2016-04-22] MEDS ORDERED: HYDROmorphone 1 mg/mL Inj IVPUSH PRN (10:10)
[2016-04-22] MEDS ORDERED: EPHEDrine Sulfate 50 mg/mL Inj IVPUSH PRN (10:10)
[2016-04-22] MEDS ORDERED: Phenylephrine 10,000 mCg/mL Inj IVPUSH PRN (10:10)
[2016-04-22] MEDS ORDERED: MetoCLOpramide 5 mg/mL 2 mL Inj IVPUSH PRN ×2 (10:10→15:50)
[2016-04-22] MEDS ORDERED: Dexamethasone 4 mg/mL Inj IVPUSH PRN (10:10)
[2016-04-22] MEDS ORDERED: HepLOK Flush 100 unit/mL 5 mL Inj IVFLUSH ONE (14:25)
[2016-04-22] MEDS ORDERED: Iopamidol-300 50 mL Inj IV ONE (14:57)
--- NOTE | 2016-04-22 15:50 | PCM.SURGPO ---
Immediate Operative Note Date of Surgery: Apr 22, 2016 Pre Operative Diagnosis Right Lower lobe Adenocarcinoma Post Operative Diagnosis Right Lower lobe adenocarcinoma Procedure Right Lower lobectomy, Mediastinal lymphadenectomy, Left Internal Jugular Port placement Surgeon and Ward Supervisor Surgeon: Alice Vinson MD Assistants: Jose Angel Cunningham MD, Oneida Weeks PAC Findings No gross disease in lymph nodes Complications There were no periprocedural complications identified. Surgical Specimen Removed: Yes Specimen sent to Pathology: Yes Anesthetic Administered: GA Grafts, Implants: Implants-See Implant Record Output, Estimated Blood Loss: 55 Blood Admin during surgery: No Attending Statement Fisrst delinquent tax collection assistant listed was essential for the successful completion of the case Alice Vinson MD Apr 22, 2016 15:50
--- NOTE | 2016-04-22 16:04 | PCM.ANEP1 ---
Post Anesthesia Phase 1 PACU Phase 1 Assessment Date of Service: Apr 22, 2016 Anesthetic Administered: GA Level of Alertness: Sleepy, easy to arouse CONNELL's with Equal Strength: No Pain: Yes Nausea or Vomiting: No Airway Device: Nasal Airway Oxygen Delivery: Simple Mask Lungs: Clear to Auscultation (Sedate, difficult to assess pain levels, shakes head yes, but cant verbalize) Gopal Andujar MD Apr 22, 2016 16:04
[2016-04-22] MEDS ORDERED: fentaNYL 2 mCg/mL-Bupivicaine 0.125% 100 mL Premix EPIDURAL ONE (16:08)
--- NOTE | 2016-04-22 16:13 | DRSVH ---
PROCEDURE: X-RAY SUGICAL FLUORO-VENOUS ACCESS INDICATIONS: POWERPORT PLACEMENT COMPARISON: [facility], CR, XR CHEST 1VW, 04/22/2016, 16:09. [facility], CR, XR CHEST 2VW, 04/01/2016, 17:24. FINDINGS: Left IJ power port has been placed with the tip projected over the lower SVC. Presumed en dotracheal tube is in place and it appears that the tip of the may be positioned within the left main stem bronchus. IMPRESSION: Placement of left arm port with distal tube tip projected over the lower SVC. Apparent endotracheal tube is present with the tube tip projected over the course of the left mainste m bronchus at the time of the examination. The postanesthesia recovery unit charge nurse was temo byrd at the time of interpretation and the nurse reports that the endotracheal tube has been removed a nd the patient was in satisfactory stable condition. Dictated by: Abdullahi LOMELI Interpreted: Syed Stewart MD on 04/22/2016 at 16:03 Transcribed by: LESTER on 04/22/2016 at 16:13 Approved by: Syed Stewart M.D. on 04/22/2016 at 17:51
[2016-04-22] MEDS: fentaNYL-PF 50 mCg/mL 2 mL Inj IVPUSH PRN ×2 (16:20→16:35)
[2016-04-22] MEDS: Sodium Chloride LOK Flush 10 mL Syringe IVFLUSH SCH ×2 (16:30→20:20)
--- NOTE | 2016-04-22 16:46 | DRSVH ---
PROCEDURE: X-RAY CHEST ONE VIEW ([id number]) INDICATIONS: R L Lobectomy, Port TECHNIQUE: One view of the chest was acquired. COMPARISON: [facility], CR, XR CHEST 2VW, 04/01/2016, 17:24. FINDINGS: Surgical changes and devices: Left chest port with the tip projecting in the lower SVC. A pair right- sided of chest tubes also noted. Surgical clips project in the right superior mediastinum Lungs and pleura: No pleural effusions or definite residual pneumothorax. Retrocardiac patchy consol idative opacities. Lung volumes are low and there is scattered atelectasis.. Mediastinum: Mediastinal contours appear normal. Heart size is normal. Bones and chest wall: No suspicious bony lesions. Overlying soft tissues appear unremarkable. IMPRESSION: Support equipment as described above. No residual pneumothorax identified. Low lung volumes and scattered atelectasis. Additional retrocardiac patchy consolidative opacity sugg esting atelectasis/aspiration or potentially pneumonia. This appears worsened since 04/01/16. Recommen d clinical correlation Dictated by: Hair Santiago M.D. on 04/22/2016 at 16:41 Approved by: Hair Santiago M.D. on 04/22/2016 at 16:45
[2016-04-22 18:42] LABS: BASOPHILS % (AUTO) 0 % (0-3); EOSINOPHILS % (AUTO) 0 % (0-5); MONOCYTES % (AUTO) 7.2 % (4-12); Mean Corpuscular Hemoglobin 29.4 pg (27.0-35.0); Mean Corpuscular Volume 88.1 fL (81-100); NEUTROPHILS % (AUTO) 88.8 % (40-74); Platelet Count 278 bil/L (150-400)
--- NOTE | 2016-04-22 19:24 | OP ---
[address] [address] OPERATIVE REPORT PATIENT: THALIA COPPOLA : 1955 MR#: [id number] ADMIT: 04/22/2016 JOB ID: [id number] DATE OF SURGERY: 04/22/2016 PREOPERATIVE DIAGNOSIS(ES): Right lower lobe adenocarcinoma. POSTOPERATIVE DIAGNOSIS(ES): Right lower lobe adenocarcinoma. PROCEDURE PERFORMED: Right posterolateral muscle-sparing thoracotomy with right lower lobectomy, mediastinal lymphadenectomy, tunneled left internal jugular central venous catheter with subcutaneous port placement, intraoperative ultrasound, intraoperative fluoroscopy. SURGEON: Alice Vinson MD. HALVER MACHINE OPERATOR: Jose Angel Cunningham MD. Sydney Weeks PA-C. ESTIMATED BLOOD LOSS: 55 mL. COMPLICATIONS: None. CONDITION OF THE PATIENT: Stable. INDICATIONS: The patient is a 60-year-old lady who had been struggling with a chronic cough which prompted a chest x-ray. Showed a right lower lobe infiltrate. This lesion was seen on a CT scan early as 2007, but that was not followed through with imaging. I have met her on February 25, 2016, and after PET-CT and a CT- guided biopsy, once we had a diagnosis of adenocarcinoma, performed a right thoracoscopy with biopsies of parietal pleural lesions and cervical mediastinoscopy on April 01, 2016. These showed no evidence of intrapleural or mediastinal spread of the tumor. After discussing the risks, benefits, and alternatives, she is here today for right lower lobectomy, mediastinal lymphadenectomy, and port placement. PROCEDURE DETAILS: She was brought to the operating room, had an epidural catheter placed, and then had smooth induction of general anesthesia with a double-lumen endotracheal tube. Then had a Ghosh catheter and a right radial arterial catheter placed. She was then placed in a left lateral decubitus position with all pressure points well padded. The right chest was prepped and draped in the usual sterile fashion. Surgical time-out was undertaken using safety checklist, and all were in agreement. I began by making an incision for a posterolateral thoracotomy, extending posterior inferior to the scapula, extending all the way to the posterior axillary line, dividing the skin and subcutaneous tissue sharply and then I raised subcutaneous flaps over the latissimus dorsi superiorly inferiorly. The plane between the latissimus and trapezius muscles was developed with cautery and the posterior aspect of the latissimus was then freed from the thoracolumbar fascia with cautery. Then, after reflecting the latissimus dorsi anteriorly, we exposed the serratus anterior muscle. The fascia attachments of the serratus anterior posteriorly was also opened and was moved anteriorly. After palpating the ribs underneath the scapula, I chose the 5th intercostal space to enter the chest and incised the intercostal muscles on the superior aspect of the 6th rib to mobilize intercostal muscles off the rib and entered the pleural cavity bluntly making sure to avoid injury to the lung. The lung was found to be already desufflated by isolation and I incised the parietal pleura anteriorly and posteriorly in the 5th intercostal space, to give us adequate space to place a Finochietto retractor to slowly spread the ribs to give us the space to work. First, divided the inferior pulmonary ligament and opened the mediastinal pleura. Started dissection at the junction of the major and minor fissures to identify the pulmonary artery and its branches. The arterial trunk to the basilar segments was identified and the lymph nodes surrounding the artery at this point were removed and sent as a separate specimen. Branches to the middle lobe were identified and were carefully spared. The trunk to the basilar segment was then encircled and was ligated with a 2-0 silk. The branch to the superior segment was ligated separately with a 2-0 silk. The branches of the artery were also ligated with 2-0 silk on the specimen side, and then the staying in side was also suture ligated with a 3-0 silk and were divided. The inferior pulmonary vein was then encircled and ligated with a 2-0 silk. The branches of the inferior pulmonary vein were ligated on the specimen side and again suture ligating the inferior pulmonary vein. It was divided. Once the arteries were divided, we also used it as a guide to finish the major fissure between the upper lobe and the lower lobe with a 60 mm Endo-MARA stapler, reinforced with SeamGuard. We then dissected the bronchus intermedius isolating the lower lobe bronchus away from the middle lobe one. We then clamped the lower lobe bronchus making sure we are not compromising the middle lobe bronchus, and after ensuring that the lung was inflating well, we divided it with a 30 mm TA stapler. After dividing the bronchus, we then finished the major fissure between the middle lobe and the lower lobe with another fire of the Endo MARA 60 mm stapler with SeamGuard reinforcement. We had good hemostasis at this point, and I directed my attention to mediastinal lymph node dissection after passing the specimen away for getting frozen section on the bronchial margin. I incised the pleura between the superior vena cava and the esophagus making sure to preserve the vagus and the phrenic nerves and extracted tissue from station IV lymph nodes area getting hemostasis with electrocautery and clips as appropriate. I also removed of station VIII and IX lymph nodes inferior to the pulmonary vein along the pulmonary ligament. I explored for station VII lymph nodes inferior to azygos, retracting the esophagus posteriorly but was unable to identify much tissue at this point to remove. At this point, I placed two 28-Spanish chest tubes through stab incisions tunneled subcutaneously close to the midaxillary line and placed a straight chest tube through the anterior incision towards the apex and put a curved tube through the posterior incision on the base. I then placed #1 Vicryl for approximating the ribs in a cuqnuy-vk-[id number] fashion. After placing the sutures, I watched the lung inflate under direct vision with both the upper and middle lobes expand with chest tubes in good position. We then used a rib approximator and tied the sutures down and we secured the chest tubes. I then reapproximated the serratus anterior to its fascia posteriorly with a running 0-Vicryl suture and reapproximated the latissimus dorsi to the thoracolumbar fascia posteriorly, again with an 0-Vicryl. After that, we irrigated the surgical wound and closed the subcutaneous tissue again with a 2-0 Vicryl running suture and skin was reapproximated with 4-0 Monocryl. Steri-Strips and a sterile dressing were applied. Patient was then placed in supine position. The neck and chest were prepped and draped in the usual sterile fashion. After placing her in Trendelenburg position, I tried to access the left subclavian vein with Seldinger technique but I was unable to. Then, I proceeded to access the right internal jugular vein under ultrasound guidance and advance the guidewire. Despite advancing the guidewire to the right side, I was unable to make the guidewire make the turn to go into the superior vena cava. At this point I used a micropuncture sheath to inject contrast into the vein to make sure I had indeed a venous access. Then I made a pocket over the right pectoralis, anchored the port over the pectoralis muscle with 2-0 PDS sutures and tunneled the catheter up to the neck puncture site. I dilated the tract with an introducer dilator and then advanced the catheter through the tearaway sheath. I had to remove the tearaway sheath while advancing the catheter because the tearaway sheath would not make the curve needed to enter the superior vena cava. But once I got the catheter in, the catheter entered the superior vena cava easily and I was able to place it in the final required position. At that time, I cut the catheter to required length and attached it to the port and aspirated it and flushed it to make sure it is working well, and after ensuring good position on fluoroscopy, flushed it with 100 units/mL of heparin and closed the wound with 4-0 Monocryl. Steri-Strips and a sterile dressing were applied. Patient was recovered from anesthesia and was taken to the recovery room in stable condition. REBECA
[2016-04-22] MEDS: Acetaminophen IV 1,000 MG in IV Premix 1 EACH IV SCH (20:21)
[2016-04-23] VITALS (14 sets, daily range): BP systolic 81–124; BP diastolic 56–74; PULSE 68–95; RESP 16–24; O2SAT 92–97
[2016-04-23] MEDS: Acetaminophen IV 1,000 MG in IV Premix 1 EACH IV SCH (02:04)
--- NOTE | 2016-04-23 04:59 | NUR ---
Admit Pt arrived to [facility] room 2030 at approx. 1900 from PACU, report received from Petra, [employer] and Janice PCC RN. Pt drowsy on arrival but AOx3 and responsive to questions. Chest tubes to R lateral chest with joined insertion site and dressing; C/D/I. Draining minimal sanguineous drainage. Pt denies pain, reports epidural infusion sufficient for pain control. Fentanyl epidural continuous infusion at 8ml/hr; insertion site C/D/I. L upper chest port site C/D/I. Ghosh in place, draining urine to gravity. Pt bedrest, Q2H turns implemented as tolerated by pt. Pt moving in bed on own for pressure relief. HOB 30 degrees; ice chips requested by pt and given. LR TKO to PIV. VSS. Tele SR 80s-90s. CPOX in place, pt on 2L NC with SPO2 92-95%. Denies dyspnea. Reports full sensation. All belongings transferred with pt, at bedside. SCDs in place. Pt able to rest intermittently throughout shift.
[2016-04-23 06:13] LABS: BASOPHILS % (AUTO) 0.1 % (0-3); EOSINOPHILS % (AUTO) 0 % (0-5); MONOCYTES % (AUTO) 15.4 % (4-12); Mean Corpuscular Hemoglobin 29.1 pg (27.0-35.0); Mean Corpuscular Volume 88.6 fL (81-100); NEUTROPHILS % (AUTO) 73.3 % (40-74); Platelet Count 235 bil/L (150-400)
[2016-04-23] MEDS: Sodium Chloride LOK Flush 10 mL Syringe IVFLUSH SCH ×3 (08:30→23:36)
[2016-04-23] MEDS: Polyethylene Glycol (PEG) 17 Gm Powder PO SCH (08:50)
--- NOTE | 2016-04-23 08:55 | DRSVH ---
PROCEDURE: X-RAY CHEST ONE VIEW, PORTABLE ([id number]) INDICATIONS: R L Lobectomy, Port TECHNIQUE: One view of the chest was acquired. COMPARISON: [facility], CR, XR CHEST 1VW, 04/22/2016, 16:09. FINDINGS: Surgical changes and devices: Left chest port with the tip projecting in the cavoatrial junction. A p air of right sided chest tubes are unchanged. Lungs and pleura: Lung volumes are extremely low. There is elevation of the right hemidiaphragm. Ther e is mild improvement in the previously identified retrocardiac opacity (suggestive of resolving aspi ration) No new consolidation seen. No pneumothorax. Mediastinum: Mediastinal contours appear normal. Heart size is normal. Bones and chest wall: No suspicious bony lesions. Overlying soft tissues appear unremarkable. IMPRESSION: No new consolidation or interval change since yesterday. Mild improvement in the previous ly seen retrocardiac opacity Dictated by: Hair Santiago M.D. on 04/23/2016 at 8:45 Approved by: Hair Santiago M.D. on 04/23/2016 at 8:53
[2016-04-23] MEDS: fentaNYL 2 mCg/mL-Bupiv 0.125% 100 ML in IV Premix 1 EACH EPIDURAL SCH ×2 (10:46→20:42)
--- NOTE | 2016-04-23 10:53 | PCM.PNSURG ---
Subjective Date of Service: Apr 23, 2016 Visit Information: R lower lobectomy 04/22/2016 Post-Op Day # 1 Date of Admission: Apr 22, 2016 at 19:09 Hospital Day # 2 Subjective: Some pain, controlled reasonably well with epidural Objective Vital Sign- Last 8 Hours Date Time Temp Pulse Resp B/P Pulse Ox O2 Delivery O2 Flow Rate FiO2 04/23/16 09:36 93 04/23/16 08:19 Supplement Oxygen 04/23/16 08:19 37.1 95 24 92 Nasal Cannula 2.00 04/23/16 06:12 94 04/23/16 04:11 16 94 04/23/16 02:59 36.5 79 16 96/62 93 Nasal Cannula 16.00 Intake and Output- Last 8 Hour 04/23/16 Cumulative From/Thru 07:00 04/20/16 17:04 - 04/23/16 06:25 Intake Total 927 ml 3777 ml Output Total 805 ml 1765 ml Balance 122 ml 2012 ml Intake Oral 400 ml 400 ml IV Total 527 ml 3377 ml Output Urine Total 600 ml 1250 ml Chest Tube Drainage Total 205 ml 405 ml Estimated Blood Loss 110 ml # Bowel Movements 1 1 Lungs: Normal Air Movement SURGICAL WOUND : Wound Location/Description Dressings dry, CT output serosanguinous, Minimal airleak Result Diagram: 04/23/16 0550 04/23/16 0550 Diagnostics: CXR shows good expansion of the right upper and middle lobes Assessment & Plan Impression Doing well Problems: Plan Encourage pulmonary hygiene Ambulate CT to waterseal Regular diet Epidural Transfer to floor status Alice Vinson MD Apr 23, 2016 10:53
--- NOTE | 2016-04-23 12:37 | NUR ---
Evaluation completed. Please go to "Notes" then click on "Assessments and Notes" (bottom left corner of screen). Then select appropriate discipline tab on top of screen.
--- NOTE | 2016-04-23 13:50 | NUR ---
Report for Transfer Obtained report from Marlene Malhotra RN for [facility]. Patient will be transported within the hour.
--- NOTE | 2016-04-23 14:15 | DRSVH ---
PROCEDURE: X-RAY CHEST ONE VIEW ([id number]) INDICATIONS: f/u CT to waterseal TECHNIQUE: One view of the chest was acquired. COMPARISON: [facility], CR, XR CHEST 1VW (PORTABLE), 04/23/2016, 5:53. FINDINGS: Surgical changes and devices: Unchanged appearance. Right chest tube is stable in position Lungs and pleura: There is a small residual right apical pneumothorax. Lung volumes are low and no de finite acute consolidation. No pleural effusion Mediastinum: Mediastinal contours appear normal. Heart size is normal. Bones and chest wall: No suspicious bony lesions. Overlying soft tissues appear unremarkable. IMPRESSION: Small residual right apical pneumothorax, unchanged position of right chest tube. Dictated by: Hair Santiago M.D. on 04/23/2016 at 14:11 Approved by: Hair Santiago M.D. on 04/23/2016 at 14:12
--- NOTE | 2016-04-23 14:15 | NUR ---
Arrival to Floor Patient arrived in bed to room 1023. Report already obtained from Marlene Avery RN.
--- NOTE | 2016-04-23 14:22 | NUR ---
Transfer to 1023 Patient A&O x3 pain controlled with epidural, patient pain is currently 3/10 which she states is tolerable. VSS. Report given to JR Dietrich.
--- NOTE | 2016-04-23 16:17 | NUR ---
Hypotension Contacted Dr. Vinson with the following cook page: Patient's current BP is 87/56. Patient not currently on any fluids. Please advise. Thank you. Kaur CARIAS #[id number]
--- NOTE | 2016-04-23 17:14 | NUR ---
Low BP Paged Dr. Vinson at [phone], made him aware of patient's low BP, he told me to encourage PO fluids and he will check on patient in an hour.
--- NOTE | 2016-04-23 19:17 | PROG NOTE ---
[address] [address] PROGRESS NOTE PATIENT: THALIA COPPOLA : 1955 MR#: [id number] ADMIT: 04/22/2016 JOB ID: [id number] DATE: 04/23/2016 POSTOPERATIVE PAIN MANAGEMENT NOTE: SUBJECTIVE: This is postoperative day one after a right lower lobectomy. The patient has a continuous epidural infusion of 0.125% bupivacaine with fentanyl 2 mcg/mL. It is currently running at 8 mL/h. She reports that her pain is zero, both when sitting and with movement. However, her pain score is 1/10 to 2/10 when she coughs. She does not have any significant nausea or pruritus. She has good mobility of both legs and arms. She states that she is happy with her current pain control and would like it to stay the way it is. OBJECTIVE: The patient's vital signs indicate that she has been afebrile today. Respiratory rate has been 18 with a pulse rate in the 70s. Her blood pressure has dropped into the 80s systolic over 50s, with normal pulse oximetry in the mid 90s. The low blood pressure has been discussed with Dr. Vinson and he would like the patient to begin taking more p.o. water. The patient's mental status is normal. She is awake and alert, answering questions appropriately. The epidural insertion site is clean, dry, and intact. There are no signs of infection. Dermatome levels are approximately T3-T10 bilaterally. PLAN: I recommend that her epidural infusion continue at the current rate at 8 cc/hour. This plan was discussed with Dr. Vinson and he is in agreement that we would like to have the epidural run at least until the chest tubes are removed in the next couple of days. MTDD
[2016-04-24] VITALS (10 sets, daily range): BP systolic 121–151; BP diastolic 80–92; PULSE 82–103; RESP 18–20; O2SAT 95–98
--- NOTE | 2016-04-24 04:12 | NUR ---
ACTIVITY; pt diaphoretic, otherwise no c/o. Sat up at bedside for approx. 30 minutes while bedding and gown changed. Epidural continues at 8cc/hr. Pt states is having good relief from epidural.
--- NOTE | 2016-04-24 06:27 | NUR ---
GI; up to bsc- passing much flatus.
[2016-04-24] MEDS: Polyethylene Glycol (PEG) 17 Gm Powder PO SCH (07:36)
[2016-04-24] MEDS: fentaNYL 2 mCg/mL-Bupiv 0.125% 100 ML in IV Premix 1 EACH EPIDURAL SCH ×2 (07:36→19:48)
[2016-04-24] MEDS: Sodium Chloride LOK Flush 10 mL Syringe IVFLUSH SCH ×2 (07:40→19:07)
--- NOTE | 2016-04-24 08:53 | DRSVH ---
PROCEDURE: X-RAY CHEST ONE VIEW, PORTABLE ([id number]) INDICATIONS: f/u RL Lobectomy TECHNIQUE: One view of the chest was acquired. COMPARISON: [facility], CR, XR CHEST 1VW, 04/23/2016, 11:46. FINDINGS: Surgical changes and devices: Thoracostomy tubes are unchanged. Left Port-A-Cath is unchanged. Lungs and pleura: There is a trace right apical pneumothorax slightly decreased in size when compared with yesterday's study. No pleural effusion. Mediastinum: Mediastinal contours appear normal. Heart size is normal. Bones and chest wall: No suspicious bony lesions. Overlying soft tissues appear unremarkable. IMPRESSION: Slight decrease in the small right apical pneumothorax. Dictated by: Alexia Rueda M.D. on 04/24/2016 at 8:51 Approved by: Alexia Rueda M.D. on 04/24/2016 at 8:52
--- NOTE | 2016-04-24 10:30 | NUR ---
Remove Ghosh Cath Ghosh catheter removed @ 1030 AM. No issues noted. Pale yellow urine. Continue to monitor for void with in 4 hrs. Care continues.
--- NOTE | 2016-04-24 10:31 | PROG NOTE ---
[address] [address] PROGRESS NOTE PATIENT: THALIA COPPOLA : 1955 MR#: [id number] ADMIT: 04/22/2016 JOB ID: [id number] DATE: 04/24/2016 EPIDURAL PROGRESS NOTE: Postop day #2. SUBJECTIVE: The patient is a 60-year-old female, postoperative day #2 status post right lower lobectomy. The patient had a thoracic epidural placed by Dr. Andujar prior to surgery. Epidurals placed at T7. Notable it was a difficult placement with apparent CSF return on 1 of the attempts. Overnight the patient continued to have great pain control with minimal pain at rest, slightly increased to 2/10 with deep breathing. She has sat up to the edge of the bed and stood. She has not ambulated overnight. She does note a little coughing with deep breathing, but otherwise appears very comfortable. She has no nausea, and she is overall very happy with her pain control. OBJECTIVE: The patient is sitting comfortably in bed. Appears in no distress. She has vital signs of blood pressure 133/86, heart rate 86, respirations 18, temp 36.6, O2 sat 96% on 2 L. MEDICATIONS: Include Bupivacaine at 0.125% epidural with 2 mcg per mL of fentanyl currently running at 8 mL/h. Other medications on her MAR include: 1. Acetaminophen 1000 mg IV q.6 hours. This was last given April 23, 2016. 2. Fentanyl for breakthrough pain, which she has not received. 3. Hydromorphone which she also has not received. PHYSICAL EXAMINATION: Patient has an epidural mid-thoracic region. Nontender to palpation. The site is dry and clean. There was slight peeling of the Tegaderm, which was reinforced. She has full strength of her lower extremities and full sensation. ASSESSMENT: The patient is a 60-year-old female, postoperative day 2, status post right lower lobectomy with epidural providing good pain control. PLAN: The patient currently has excellent pain control status post thoracotomy with chest tubes currently in place. She is beginning to ambulate and tolerate an oral diet. Although the plan would be to continue the epidural solution until the chest tubes have been removed. At this point the patient's hemodynamics have stabilized compared to yesterday and would recommend continue epidural solution at 8 mL/h as it is providing great pain control with minimal hemodynamic effects. This was discussed with the patient. She was in agreement with the plan. We will continue to follow.
--- NOTE | 2016-04-24 10:36 | PCM.PNSURG ---
Subjective Date of Service: Apr 24, 2016 Visit Information: R lower lobectomy 04/22/2016 Post-Op Day # 2 Date of Admission: Apr 22, 2016 at 19:09 Hospital Day # 3 Subjective: Feeling better, Got a good sleep last night Objective Vital Sign- Last 8 Hours Date Time Temp Pulse Resp B/P Pulse Ox O2 Delivery O2 Flow Rate FiO2 04/24/16 09:00 103 04/24/16 07:52 18 96 04/24/16 07:52 Supplement Oxygen Chest Tubes 04/24/16 06:35 18 98 04/24/16 04:20 36.6 86 18 133/86 96 Nasal Cannula 2.00 04/24/16 04:00 20 95 Intake and Output- Last 8 Hour 04/24/16 Cumulative From/Thru 07:00 04/20/16 17:04 - 04/24/16 06:48 Intake Total 1200 ml 5977 ml Output Total 2045 ml 4312 ml Balance -845 ml 1665 ml Intake Oral 1200 ml 2600 ml IV Total 3377 ml Output Urine Total 1900 ml 3550 ml Chest Tube Drainage Total 140 ml 647 ml Estimated Blood Loss 110 ml Other 5 ml 5 ml # Bowel Movements 0 1 Lungs: Normal Air Movement Chest: Dressings dry. Small Airleak only with cough through the apical tube Basal CT with 550ml output over the last day Result Diagram: 04/23/16 0550 04/23/16 0550 Assessment & Plan Impression Doing well Problems: Plan Ambulate Incentive Spirometry Continue apical CT to suction, Basal tube to water seal Continue Epidural Alice Aiken MD Apr 24, 2016 10:36
--- NOTE | 2016-04-24 11:26 | NUR ---
Oxygen / Ambulation Pt up with PT. Oxygen removed as pt was 96%. Pt ambulated with FWW around bed 2-3 times with PT and Nurse at bedside. Oxygen rechecks and was @ 94%. Pt up in chair at this time. Oxygen remains off CPOx on and 94-96% on RA at this time. Plan to watch CPOx and reassess oxygen needs. Care continues
--- NOTE | 2016-04-24 16:02 | NUR ---
Social Work Note: Screen Note Data& Assessment: EMR reviewed. Zuleyma Thurman is a 60 year old female admitted on 04/22/2016 for adenocarcinoma of right lung. Pt has [facility] ADMIN Insurance coverage and sees Hyacinth Londono MD for primary care. Pt lives in [place] and is independent at baseline. Per PT, pt requires SNF at time of discharge. SW to follow up with pt regarding SNF preference. SW to continue to follow. Plan: Anticipated discharge to SNF pending acceptance and insurance authorization. SW to follow up with pt regarding SNF preference. SW to continue to follow. SHANA Ramirez
--- NOTE | 2016-04-24 18:12 | NUR ---
Tele / Oxygen Per tele SR / ST 70-100s.with PACs, PVCs and sometimes bigem. Asymptomatic. Pt has been on RA with CPOx SPO2 at 92-94%. Pt aware to deep breath more often and when the CPOx alerts her at 92%. May need Oxygen Supplementation for HS. Care Continues
[2016-04-25] VITALS (13 sets, daily range): BP systolic 118–151; BP diastolic 72–89; PULSE 77–101; RESP 16–18; O2SAT 92–96
[2016-04-25] MEDS: Sodium Chloride LOK Flush 10 mL Syringe IVFLUSH SCH ×3 (00:30→16:30)
--- NOTE | 2016-04-25 04:04 | NUR ---
PAIN; pt states feels much better today. No c/o diaphoresis. Pain controlled with epidural gtt at 8cc/hr. UP to bathroom to void. Requested to have 02 on during the night for comfort. 02 sat 96% on 2 liters.
[2016-04-25] MEDS: Polyethylene Glycol (PEG) 17 Gm Powder PO SCH (07:54)
[2016-04-25] MEDS: fentaNYL 2 mCg/mL-Bupiv 0.125% 100 ML in IV Premix 1 EACH EPIDURAL SCH ×2 (07:54→18:42)
--- NOTE | 2016-04-25 08:37 | PCM.ANEP2 ---
Post Anesthesia Evaluation ASA/CMS Post Anesthesia VS in Patient's Normal Range?: Yes Resp Stable; Airway Patent?: Yes CV Function & Hydration Stable: Yes Mental Status Recovered?: Yes Pain control Satisfactory?: Yes N/V Control Satisfactory?: Yes Gopal Andujar MD Apr 25, 2016 08:37
--- NOTE | 2016-04-25 09:42 | DRSVH ---
PROCEDURE: X-RAY CHEST ONE VIEW, PORTABLE ([id number]) INDICATIONS: F/U Lobectomy TECHNIQUE: One view of the chest was acquired. COMPARISON: [facility], CR, XR CHEST 1VW (PORTABLE), 04/24/2016, 7:13. FINDINGS: Surgical changes and devices: Thoracostomy tubes are unchanged. Left Port-A-Cath is unchanged. Lungs and pleura: There is a trace right apical pneumothorax unchanged in size when compared with yes terkeanu's study. No pleural effusion. Mediastinum: Mediastinal contours appear normal. Heart size is normal. Bones and chest wall: No suspicious bony lesions. Overlying soft tissues appear unremarkable. IMPRESSION: No change in trace right pneumothorax. Dictated by: Abdullahi LOMELI Interpreted: Montse Mane MD on 04/25/2016 at 9:40 Transcribed by: CONSTANCE on 04/25/2016 at 9:41 Approved by: Montse Mane M.D. on 04/25/2016 at 16:45
--- NOTE | 2016-04-25 14:26 | NUR ---
Social Work Continued Discharge Planning Data & Assessment: SW met with patient and patient's at bedside to discuss discharge planing. SW notified patient that PT was recommending HH for discharge planning. Patient voiced understanding and was in agreement. SW provided patient with choice and patient chose [facility], but wanted SW to confirm that they were in network with her insurance. SW spoke with Silverio from [facility] and he confirmed that they are in network with [facility] MG[facility] ADMIN. Patient will discharge home with [facility]. SW gave [facility] access to patient's chart. SW will continue to follow patient for DC planning needs. SW contact information was provided to patient and written on patient's white board in her room. Plan: Patient plans to stay at her mother's home in [place] when discharged because her home has three flight of stairs. Patient will discarge home via POV. SW will continue to follow. Lizzeth Barber LMSW, ERICA
--- NOTE | 2016-04-25 17:10 | PCM.PNSURG ---
Subjective Date of Service: Apr 25, 2016 Visit Information: R lower lobectomy 04/22/2016 Post-Op Day # 3 Date of Admission: Apr 22, 2016 at 19:09 Hospital Day # 4 Subjective: Feeling well Objective Vital Sign- Last 8 Hours Date Time Temp Pulse Resp B/P Pulse Ox O2 Delivery O2 Flow Rate FiO2 04/25/16 15:04 36.8 88 18 151/89 96 Room Air 04/25/16 14:25 101 Room Air 04/25/16 10:55 77 04/25/16 09:42 36.5 99 17 130/78 94 Room Air Intake and Output- Last 8 Hour 04/25/16 Cumulative From/Thru 07:00 04/20/16 17:04 - 04/25/16 06:20 Intake Total 1200 ml 9023 ml Output Total 1490 ml 7464 ml Balance -290 ml 1559 ml Intake Oral 1200 ml 5646 ml IV Total 3377 ml Output Urine Total 1350 ml 6405 ml Chest Tube Drainage Total 647 ml Drainage Total 140 ml 297 ml Estimated Blood Loss 110 ml Other 5 ml # Bowel Movements 1 Lungs: Normal Air Movement Chest: Incisions C/D/I. Tiny airleak from Apical tube. Result Diagram: 04/23/16 0550 04/23/16 0550 Assessment & Plan Impression Doing well Problems: Plan Ambulate Pulm toilet DC Basal chest tube Continue Apical tube to suction Continue Epidural for pain control Alice Vinson MD Apr 25, 2016 17:10
--- NOTE | 2016-04-25 18:09 | NUR ---
Chest tube MD avalos removed Chest tube #2 from pt this afternoon. No new output noted. Chest tube #1 remains in with suction to wall. No air leaks noted. Care continues
--- NOTE | 2016-04-25 20:03 | PROG NOTE ---
[address] [address] PROGRESS NOTE PATIENT: THALIA COPPOLA : 1955 MR#: [id number] ADMIT: 04/22/2016 JOB ID: [id number] DATE: 04/25/2016 EPIDURAL PROGRESS NOTE: Postop day number three. SUBJECTIVE: The patient is a 60-year-old female, postop day number three, status post right lower lobectomy. The patient had a thoracic epidural placed by myself on the day of surgery, April 22, 2016. Overnight, the patient continued to have good pain control, rating her pain a 0/10 with minimal pain with activity and deep breaths. She is sat up to the edge of the bed and she is stood with assistance. She is ambulating with assistance. Does note a small amount of coughing with deep breathing and otherwise is comfortable. She denies nausea and is happy with her current pain control. OBJECTIVE: The patient is sitting comfortably in bed. Appears in no distress. Vital signs: 132/78, heart rate of 78, respirations of 16, and temperature 36.2, oxygen sat of 95% on 2 L. Medications through the epidural include bupivacaine 0.125% with 2 mcg/cc of fentanyl currently running at 8 cc/hour. PHYSICAL EXAMINATION: Patient has an epidural in the mid thoracic region. No tenderness to palpation. The site is clean, dry. The dressing is intact. No apparent erythema around the insertion site of the epidural catheter. She is sitting at the bedside and full strength of lower extremities and full sensation. ASSESSMENT: Patient is a 60-year-old female, postoperative day number three, status post right lower lobectomy with epidural providing good pain control. PLAN: The patient currently has good pain control status post thoracotomy with two chest tubes in place. She is taking p.o. medications and is non-nauseated but still has both chest tubes in place. Consideration would be to maintain the epidural for one more day as the chest tubes are planning to be removed either tonight or tomorrow and re-evaluate tomorrow morning. The plan was discussed with the patient. She was in agreement with the plan. We will continue to follow.
[2016-04-26] VITALS (8 sets, daily range): BP systolic 123–149; BP diastolic 78–87; PULSE 67–130; RESP 18–20; O2SAT 94–97
[2016-04-26] MEDS: Sodium Chloride LOK Flush 10 mL Syringe IVFLUSH SCH ×3 (01:16→17:05)
--- NOTE | 2016-04-26 03:35 | NUR ---
Pain/activity Pt reports pain is managed with epidural set at 8cc/hr. Pt refusing scheduled tylenol, states she does not need. O2 sat stable at 92-93% RA all shift. Pt up to EOB x2 and sat for a while, stated she wanted a different position. Feeling well, transferring to [facility] with [facility] with no complaints of shortness of breath. Chest tube in place with no leaks
--- NOTE | 2016-04-26 08:27 | DRSVH ---
PROCEDURE: X-RAY CHEST ONE VIEW ([id number]) INDICATIONS: F/u RL lobectomy TECHNIQUE: One view of the chest was acquired. COMPARISON: [facility], CR, XR CHEST 1VW (PORTABLE), 04/25/2016, 7:54. FINDINGS: Surgical changes and devices: Stable positioning of the remaining right pleural drain in the lower dr ain seen on prior examinations been removed. Left IJ chest port redemonstrated. Lungs and pleura: Small residual right pleural effusion is present and no definite right pneumothorax is seen. Mediastinum: Mediastinal contours appear normal. Heart size is normal. Bones and chest wall: No suspicious bony lesions. Overlying soft tissues appear unremarkable. IMPRESSION: Removal of the lower right pleural drain and no definite right pneumothorax is seen. Dictated by: Abdullahi Segundo [facility] Interpreted: Montse Mane MD on 04/26/2016 at 8:26 Transcribed by: CONSTANCE on 04/26/2016 at 8:27 Approved by: Montse Mane M.D. on 04/26/2016 at 16:33
--- NOTE | 2016-04-26 08:58 | PCM.PNSURG ---
Subjective Date of Service: Apr 26, 2016 Visit Information: R lower lobectomy 04/22/2016 Post-Op Day # 4 Date of Admission: Apr 22, 2016 at 19:09 Hospital Day # 5 Subjective: Feels well Objective Vital Sign- Last 8 Hours Date Time Temp Pulse Resp B/P Pulse Ox O2 Delivery O2 Flow Rate FiO2 04/26/16 05:23 36.6 95 18 149/87 94 Room Air 04/26/16 01:15 36.6 86 18 138/78 94 Room Air Intake and Output- Last 8 Hour 04/26/16 Cumulative From/Thru 07:00 04/20/16 17:04 - 04/26/16 06:35 Intake Total 1200 ml 79945 ml Output Total 1975 ml 97365 ml Balance -775 ml 749 ml Intake Oral 1200 ml 7946 ml IV Total 3377 ml Output Urine Total 1925 ml 9330 ml Chest Tube Drainage Total 647 ml Drainage Total 50 ml 482 ml Estimated Blood Loss 110 ml Other 5 ml # Bowel Movements 1 2 Lungs: Normal Air Movement Chest: No Airleak on chest tube Result Diagram: 04/23/16 0550 04/23/16 0550 Diagnostics: CXR looks good Assessment & Plan Impression Doing well Problems: Plan Removed Apical Chest tube Chest Xray later today Attempt to transition off epidural later today Ambulate Incentive Spirometry Plan Discharge tomorrow if continuing to do well Alice Vinson MD Apr 26, 2016 08:58
[2016-04-26] MEDS: Polyethylene Glycol (PEG) 17 Gm Powder PO SCH (10:05)
[2016-04-26] MEDS: oxyCODONE-Acetamin 5-325 mg Tablet PO PRN ×4 (12:19→22:06)
--- NOTE | 2016-04-26 12:55 | DRSVH ---
PROCEDURE: X-RAY CHEST, TWO VIEWS ([id number]) INDICATIONS: F/U R Lower lobectomy TECHNIQUE: 2 views of the chest were acquired. COMPARISON: [facility], CR, XR CHEST 1VW, 04/26/2016, 5:31. FINDINGS: Surgical changes and devices: Right pleural drain has been removed. Stable positioning of left IJ ch est port. Lungs and pleura: Trace right apical pneumothorax and small layering right basilar pleural effusion r edemonstrated. Mediastinum: Mediastinal contours are normal. Heart size is normal. Bones and chest wall: No suspicious bony abnormalities. Soft tissues appear unremarkable. IMPRESSION: 1. Removal of right pleural drain and trace right apical pneumothorax is present. Dictated by: Abdullahi LOMELI Interpreted: Montse Mane MD on 04/26/2016 at 12:54 Transcribed by: CONSTANCE on 04/26/2016 at 12:55 Approved by: Montse Mane M.D. on 04/26/2016 at 17:31
[2016-04-26] MEDS: HYDROmorphone 1 mg/mL Inj IVPUSH PRN ×5 (18:13→23:53)
--- NOTE | 2016-04-26 19:26 | NUR ---
Pain/Activity Pt's epidural turned off at noon and pt walking multiple laps in hallways with pain 1-2/10. PO medications given and pain well controlled. Epidural removed at 1700 and pt had increasing pain up to 9/10 in right back. IV and PO medications given, pt became tachycardic up to 140's, cool wash cloth and ice pack in place, encouraged slow, deep breathes. MD aware and believes it is just d/cing the epidural and will re xray in the AM. Discussed pain control and went in room with night RN. Pt also had increasing nausea and IV meds given.
[2016-04-27 00:17] VITALS: BP 154/84; PULSE 108; RESP 18; O2SAT 93
[2016-04-27] MEDS: Sodium Chloride LOK Flush 10 mL Syringe IVFLUSH SCH ×4 (01:01→22:17)
[2016-04-27] MEDS: HYDROmorphone 1 mg/mL Inj IVPUSH PRN ×4 (02:03→11:12)
[2016-04-27 04:35] VITALS: BP 155/85; PULSE 121; RESP 18; O2SAT 95
--- NOTE | 2016-04-27 06:37 | NUR ---
Pain/HR At start of shift Pt experiencing severe pain. Off going nurse gave PRN dilaudid and roxicodone. Minimal effects rec'd. Pt then rec'd prn percocet and dilaudid alternating per orders. Pt continued to experience extreme pain and HR elevated to 140's. MD krishnamurthy, new order rec'd for dilaudid .5-2mg IV push q2hrs PRN. Pt required 2mg q2-3 hrs to keep pain at a 6/10. Pt continues to have elevated HR in the 100's, when pain is not controlled it is 129-140's.
[2016-04-27 07:39] LABS: BASOPHILS % (AUTO) 0.1 % (0-3); EOSINOPHILS % (AUTO) 0.5 % (0-5); MONOCYTES % (AUTO) 10.6 % (4-12); Mean Corpuscular Hemoglobin 29.3 pg (27.0-35.0); Mean Corpuscular Volume 90.5 fL (81-100); NEUTROPHILS % (AUTO) 79.4 % (40-74); Platelet Count 245 bil/L (150-400)
[2016-04-27] MEDS: Polyethylene Glycol (PEG) 17 Gm Powder PO SCH (09:22)
[2016-04-27 10:16] VITALS: BP 126/78; PULSE 86; RESP 16; O2SAT 92
[2016-04-27 11:02] VITALS: PULSE 118
--- NOTE | 2016-04-27 11:27 | DRSVH ---
PROCEDURE: X-RAY CHEST, TWO VIEWS ([id number]) INDICATIONS: F/U R LOWER LOBECTOMY TECHNIQUE: Two views of the chest were acquired. COMPARISON: [facility], CR, XR CHEST 2VW, 04/26/2016, 12:43. FINDINGS: Surgical changes and devices: Right pleural drain has been removed. Stable positioning of left IJ c hest port. Lungs and pleura: Trace right apical pneumothorax present and small layering right basilar pleural e ffusion redemonstrated. Medial left basilar airspace opacity. Mediastinum: Mediastinal contours are normal. Heart size is normal. Bones and chest wall: No suspicious bony abnormalities. Soft tissues appear unremarkable. IMPRESSION: 1. Nearly resolved trace right apical pneumothorax and persistent small layering right pleural effusi on. 2. Airspace opacity of the medial left lung base consistent with atelectasis, aspiration or pneumonia . Dictated by: Abdullahi LOMELI Interpreted: Yari Simons MD on 04/27/2016 at 11:02 Transcribed by: VALERIE on 04/27/2016 at 14:27 Approved by: Yari Simons MD, PhD on 04/27/2016 at 17:03
--- NOTE | 2016-04-27 13:18 | PCM.PNSURG ---
Subjective Date of Service: Apr 27, 2016 Visit Information: R lower lobectomy 04/22/2016 Post-Op Day # 5 Date of Admission: Apr 22, 2016 at 19:09 Hospital Day # 6 Subjective: Had problems with pain control overnight after epidural removed yesterday Objective Vital Sign- Last 8 Hours Date Time Temp Pulse Resp B/P Pulse Ox O2 Delivery O2 Flow Rate FiO2 04/27/16 11:02 118 04/27/16 10:16 36.7 86 16 126/78 92 Nasal Cannula 2.00 04/27/16 08:04 Supplement Oxygen Intake and Output- Last 8 Hour 04/27/16 Cumulative From/Thru 07:00 04/20/16 17:04 - 04/27/16 06:14 Intake Total 350 ml 67021 ml Output Total 1450 ml 95772 ml Balance -1100 ml 529 ml Intake Oral 350 ml 9576 ml IV Total 3377 ml Output Urine Total 1450 ml 34196 ml Chest Tube Drainage Total 647 ml Drainage Total 482 ml Estimated Blood Loss 110 ml Other 5 ml # Bowel Movements 0 3 Lungs: Normal Air Movement (Dressings dry) Result Diagram: 04/27/16 0725 04/27/16 0725 Assessment & Plan Impression Doing okay Problems: Plan Scheduled tylenol, Ibuprofen Increase oxycodone Dilaudid for break through Ambulate Incentive Spirometry Plan Discharge when we have good pain control Alice Vinson MD Apr 27, 2016 13:18
--- NOTE | 2016-04-27 15:41 | NUR ---
Social Work: Continued d/c planning Data: Pt is on day 5 of hospitalization. EMR reviewed. MD states in progress note that pt continues to have pain and will d/c when that is under control. AIRCRAFT MANAGER will continue to follow. Assessment: Pt who is independent at baseline. Plan: Pt will d/c home via POV when medically stable with [facility]. PT. AIRCRAFT MANAGER will continue to follow. SHANA Godoy
[2016-04-27 16:00] VITALS: BP 115/60; PULSE 85; RESP 16; O2SAT 92
--- NOTE | 2016-04-27 17:26 | NUR ---
Pain/activity- Patient complaining of severe incisional pain this morning, and very diaphoretic. Unable to move self in bed or take in a deep breath. Medicated with IV Dilaudid, Oxycodone, Tylenol, and Ibuprofen before getting pain under control. Oral pain med and scheduled Motrin and Tylenol have been effective for discomfort. Patient has been sitting up in chair and ambulating in hallway. Tolerating diet and fluids well. Patient has been on room air.
[2016-04-27 20:04] VITALS: BP 152/82; PULSE 91; RESP 16; O2SAT 93
[2016-04-28 00:02] VITALS: BP 123/75; PULSE 85; RESP 16; O2SAT 92
--- NOTE | 2016-04-28 04:33 | NUR ---
Pain Pt. rates pain 2-3/10 throughout shift. PO Tylenol and Motrin effective for pain. Pt. has requested PO Roxycodone twice so far this shift. Will continue to monitor.
[2016-04-28 04:37] VITALS: BP 126/71; PULSE 88; RESP 18; O2SAT 94
[2016-04-28 05:34] VITALS: PULSE 113
[2016-04-28] MEDS ORDERED: IBUP-1827 PO (06:08)
[2016-04-28] MEDS ORDERED: Acetaminophen PO (06:08)
[2016-04-28] MEDS ORDERED: OXYC5TAB72 PO (06:08)
--- NOTE | 2016-04-28 06:11 | PCM.DISURG ---
Surgical Discharge Instruction Date of Service Apr 28, 2016 Dates of Hospitalization Date of Hospital Admission Apr 22, 2016 at 19:09 Providers Admitting Physician: Alice Vinson MD Primary Care Physician: Anya Londono MD Attending Physician: Alice Vinson MD Discharge Diagnosis Post Operative diagnosis Right Lower lobe adenocarcinoma s/ p R Lower Lobectomy, Port placement Diet Discharge Diet: No restrictions Activity Discharge Activity-General: Be up and about Dressing and Incisional Care Dressing Care: Remove outer dressing after 24 hrs Hygiene: May shower Follow Up Plan Follow Up Plan Chest Xray 2 views prior to follow up appointment Follow-up Provider (F9): Alice Vinson MD Follow-up appointment: Weeks Call your provider for: Fever, Chills, Shortness of breath, Wound redness, Increasing wound pain, Discharge @ incision, pus discharge Alice Vinson MD Apr 28, 2016 06:11
[2016-04-28 07:58] VITALS: PULSE 105
[2016-04-28] MEDS: Sodium Chloride LOK Flush 10 mL Syringe IVFLUSH SCH (08:47)
[2016-04-28] MEDS: Polyethylene Glycol (PEG) 17 Gm Powder PO SCH (08:47)
--- NOTE | 2016-04-28 11:02 | PCM.PNSURG ---
Subjective Date of Service: Apr 28, 2016 Visit Information: R lower lobectomy 04/22/2016 Post-Op Day # 6 Date of Admission: Apr 22, 2016 at 19:09 Hospital Day # 7 Subjective: Feeling well Objective Vital Sign- Last 8 Hours Date Time Temp Pulse Resp B/P Pulse Ox O2 Delivery O2 Flow Rate FiO2 04/28/16 07:58 105 04/28/16 05:34 113 04/28/16 04:37 36.6 88 18 126/71 94 Room Air Intake and Output- Last 8 Hour 04/28/16 Cumulative From/Thru 07:00 04/20/16 17:04 - 04/28/16 06:18 Intake Total 1600 ml 34173 ml Output Total 27505 ml Balance 1600 ml 2709 ml Intake Oral 1600 ml 87453 ml IV Total 3377 ml Output Urine Total 81994 ml Chest Tube Drainage Total 647 ml Drainage Total 482 ml Estimated Blood Loss 110 ml Other 5 ml # Voids 2 4 # Bowel Movements 2 5 Lungs: Normal Air Movement Chest: Incision C/D/I Result Diagram: 04/27/16 0725 04/27/16 0725 Assessment & Plan Impression Doing well Problems: Plan Discharge Home Alice Vinson MD Apr 28, 2016 11:02
[2016-04-28 11:19] VITALS: BP 131/74; PULSE 102; RESP 19; O2SAT 93
--- NOTE | 2016-04-28 12:49 | NUR ---
Social Work- Readiness for Discharge Data: EMR reviewed. Pt is on day 6 of hospitalization for adenocarcinoma of right lung per H&P. Pt is medically stable, anticipate discharge later today. Pt to discharge home with [facility]. SW notified Silverio Betancur, [facility] liaison [phone], of pt's discharge. F2F provided. Pt to discharge home with spouse to transport via POV. SW will continue to follow. Assessment: Pt who would benefit from PT. Plan: Pt to discharge home with [facility] and spouse to transport via POV. SW will continue to follow. SHANA Minor
--- NOTE | 2016-04-28 12:49 | NUR ---
Discharge Pt discharged to home with at 1249. Wheeled off unit to vehicle. A&Ox3, CONNELL, VSS, Pain present but tolerable - received Motrin prior to dc, IV dc'd intact, Dressing removed to right chest s/p lobectomy by Dr. Vinson, Dressing removed from Port placement site - steristrips CDI, Steristrip to left neck also CDI, Hard copy scripts provided to pt, CareNotes and instructions provided on dc dx, new medications, and s/sx to seek medical attention for. All personal belongings in hand at dc. No unanswered questions/concerns at time of dc.
--- NOTE | 2016-04-29 09:24 | PCM.DC.SUR ---
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 Other diagnoses: 1. Hypertension 2. Hyperlipidemia 3. Sleep apnea 4. Gastroesophageal reflux disease 5. Thrombocytopenia 6. Morbid obesity, BMI 36.3. 7. Renal angiomyolipoma 8. Uterine fibroids Problems: Operation 1. Right posterolateral muscle-sparing thoracotomy with right lower lobectomy. 2. Mediastinal lymphadenectomy 3. Tunneled left internal jugular central venous catheter with subcutaneous port placement. 4. Intraoperative ultrasound. 5. Intraoperative fluoroscopy. Brief History and Physical: Zuleyma Thurman is a 60-year-old lady who was reportedly struggling with a chronic cough, progressively getting worse since spring. She was seen by Dr. Londono in December 2015 and had a chest x-ray which showed a right lower lobe infiltrate. She was treated with antibiotics without relief and had a follow-up x-ray in 2 weeks which showed infiltrate with persistent, which led to a CT chest with contrast. After which she was referred for surgical consultation. Interestingly, right lower lobe lesion was seen previously on a CT KUB performed in April 2015 for follow-up of some cystic kidney lesions. She was also hospitalized with respiratory illness, Escherichia coli bacteremia in February 2007 and she was seen by Dr. Mick Cohen, who performed a bronchoscopy and sent bronchial washings for cytology and bacterial, AFB and fungal cultures. Which were all normal. She was discharged home in 3 days on Levaquin with the diagnosis of community-acquired pneumonia and a cavitary lesion in the right lower lobe. She did not remember any symptoms from then until last year. The only recent travel she remembered was to [place]. She reportedly had a problem with her blood counts (she thinks platelets, her thinks WBCs) a couple of years ago requiring extensive workup, including referral to [place], bone marrow biopsies. This apparently got better just with follow-up, and no obvious diagnosis was made. She was seen on 02/25/2016, after PET/CT and CT-guided biopsy, once she had the diagnosis of adenocarcinoma, she underwent right thoracoscopy with biopsies of parietal pleural lesions and cervical mediastinoscopy on 04/01/2016. She did well, went home on postoperative day 1, just taking Tylenol for pain after that. Consultants: None Hospital Course: The patient was admitted and underwent the above-mentioned operations without complication. Chest tubes were placed in waterseal on her first postsurgical day. Apical tube was returned to suction the following day for a small air leak. Basilar chest tube was able to be removed on the third postsurgical day, apical tube was removed on the fourth postsurgical day. Ghosh catheter was removed on the second postsurgical day. Epidural was removed on the patient's fourth postsurgical day. Respiratory status was never compromised during her entire recovery. She was stable for discharge on her fifth postsurgical day following achievement of adequate analgesia. Pathology: Right lower lobe of the lung demonstrated invasive well-differentiated adenocarcinoma measuring 7.9 x 6.5 x 4.7 cm. All margins were negative. All lymph nodes were negative. Disposition: The patient was discharged to home on her fifth postsurgical day at which time her incisions appeared to be healing, she was breathing without difficulty, and tolerating pain on oral analgesic. Follow-up Plan: She will follow-up in the office with Dr. Vinson with a chest x-ray in 2 weeks. ([Acetaminophen]) 325 MG TABLET 975 MG PO Q6 Amlodipine (Amlodipine) 5 Mg Tablet 10 MG PO BID (Reported) Calcium Carbonate/Vitamin D3 (Calcium 500+D Tablet Chew) 1 Each Tab.chew 1 EACH PO DAILY (Reported) Ibuprofen (Ibuprofen) 600 Mg Tablet 600 MG PO [facility] Lactobacillus Acidophilus (Probiotic) 1 Each Capsule 1 EACH PO DAILY (Reported) Multivits-Min/FA/Lycopene/Lut (Centrum Silver Tablet) 1 Each Tablet 1 EACH PO DAILY (Reported) Phenol (Chloraseptic) 20 Ml Logan 20 ML MM prn (Reported) Sennosides (Senna) 8.6 Mg Tablet 17.2 MG PO DAILY oxyCODONE (oxyCODONE) 5 Mg Tablet 10-15 MG PO Q3H PRN PRN For Pain copies to: Gopal Fine MD; Rick Campso DO; Anya Londono MD, Fred H PA-C Apr 29, 2016 09:24
[2016-06-06] MEDS ORDERED: ONDA8TAB10 PO (09:41)
[2016-06-06] MEDS ORDERED: OLAN5TAB PO (09:41)
[2016-06-06] MEDS ORDERED: LORA0.5T PO (09:41)
[2016-06-06] MEDS ORDERED: FOLI0.4T2 PO (09:41)
[2016-06-13] MEDS ORDERED: METO25TA6 PO (08:34)
== END 2016-04-28 12:50 | disposition home health service (06) | DRG 165 ==
LOC: SAS 05:39 → PCC 19:09 → OSC 04-23 12:28
PROVIDERS: ADMIT Student in an Organized Health Care Education/Training Program; ATTEND Student in an Organized Health Care Education/Training Program
PROC: 0JH60XZ Insertion of Tunneled Vascular Access Device into Chest Subcutaneous Tissue and Fascia, Open Approach (ICD-10-PCS; 2016-04-22)
PROC: 02HV33Z Insertion of Infusion Device into Superior Vena Cava, Percutaneous Approach (ICD-10-PCS; 2016-04-22)
PROC: 0BTF4ZZ Resection of Right Lower Lung Lobe, Percutaneous Endoscopic Approach (ICD-10-PCS; principal; 2016-04-22 07:15)
PROC: 07B74ZX Excision of Thorax Lymphatic, Percutaneous Endoscopic Approach, Diagnostic (ICD-10-PCS; 2016-04-22 07:15)
DX: C34.91 Malignant neoplasm of unspecified part of right bronchus or lung (principal); I10 Essential (primary) hypertension; K21.9 Gastro-esophageal reflux disease without esophagitis; E78.5 Hyperlipidemia, unspecified; E66.01 Morbid (severe) obesity due to excess calories; Z68.36 Body mass index [BMI] 36.0-36.9, adult